=== PATIENT | male | born 1975 | race Two or more races ===

== ENCOUNTER → 2017-05-15 06:59 | Day surgery (SDC) | payer OTHER ==
[~2017-05-15 06:59] MED LIST: Acetaminophen TAB* 325 MG PO PRN; Buffered Lidocaine 0.9% SYRIN* 5 ML/SYR SYRINGE INTRADERM ONE; Buffered Lidocaine 0.9% SYRIN* 5 ML/SYR SYRINGE ONE; DiMENhydriNATE IV* 50 MG/ML VIAL IV PUSH PRN; HYDROcodone/ACETAMIN 5-325 MG* 1 TAB ONE; Lidocaine 1% MPF wEPI 200,000* 30 ML SDV ONE; Lidocaine 2% PF * 5 ML VIAL ONE; Ondansetron INJ* 2 MG/ML VIAL IV PRN; Oxymetazoline 0.05% NASAL SPR* 15 ML BTL ONE; Propofol* 10 MG/ML 20 ML BTL IV PUSH ONE; fentaNYL* 50 MCG/ML 2 ML VIAL (100 MCG VIAL) ONE
[2017-05-15] MEDS: fentaNYL* 50 MCG/ML 2 ML VIAL (100 MCG VIAL) IV PRN ×2 (08:48→08:59)
[2017-05-15 09:34] VITALS: BP 141/69
--- NOTE | 2017-05-15 12:20 | OP ---
OPERATIVE REPORT: DATE OF OPERATION: 05/15/17 DATE OF : 73 SURGEON: German Loja M.D. PRE-OP DIAGNOSIS: Deviated nasal septum, hypertrophy of inferior turbinates, and nasal dyspnea. POST-OP DIAGNOSIS: Deviated nasal septum, hypertrophy of inferior turbinates, and nasal dyspnea. OPERATIVE PROCEDURE: Septoplasty and submucosal resection of inferior turbinates. BRIEF HISTORY: This 42-year-old gentleman with longstanding history of nasal dyspnea, symptoms of chronic sinusitis, and chronic congestion, not improving with medical management including nasal steroids. DESCRIPTION OF PROCEDURE: The patient was taken to the operating room, general anesthetic given, patient intubated with LMA. Nose was decongested with Afrin placed pledgets and subsequently 2% lidocaine with epinephrine was infiltrated into the septal mucosa on both sides and the inferior turbinates on both sides. Subsequently, a left hemitransfixion incision was created, mucoperichondrial flap was elevated. Quadrangular cartilage was disarticulated along the vomer- ethmoidal complex posteriorly. Large septal spur was removed posteriorly. Quadrangular cartilage was curved on its concave surface on the right side, was scored, and subsequently replaced back in the midline along the maxillary crest. Multiple mattress sutures of chromic was utilized. The hemitransfixion was closed. Router splints were applied, which were secured with 3-0 silk. Then we turned our attention to the inferior turbinate. A small incision was made in the inferior turbinate mucosa. Submucosal elevation was carried out. Portions of submucosal bone was removed. Subsequently cauterization of submucosal tissue was carried out to enhance hemostasis. Small dressing was applied. The patient was awakened and sent to recovery room in stable condition. Instrument and sponge count correct. Blood loss minimal. [id number]/[facility] #: [id number] [facility]
== END | disposition home or self-care (01) ==
LOC: OR 06:59
PROVIDERS: ATTEND Otolaryngology
DX: J34.2 Deviated nasal septum (principal); J34.3 Hypertrophy of nasal turbinates; J45.909 Unspecified asthma, uncomplicated; E03.9 Hypothyroidism, unspecified; B19.20 Unspecified viral hepatitis C without hepatic coma
CPT/HCPCS: A9270-GY; J2001; J2704; J3010

== ENCOUNTER 2019-08-11 08:23 | Day surgery (SDC) | payer OTHER ==
--- NOTE | 2019-08-05 13:00 | HP ---
PREOPERATIVE HISTORY AND PHYSICAL: DATE OF ADMISSION/SURGERY: 08/11/19 [facility] DATE OF OFFICE VISIT/ENCOUNTER: 08/03/19 ATTENDING SURGEON: Areli Raymundo MD * (DICTATED BY TEO VILLARREAL) PROCEDURE: Right wrist carpal tunnel release, ulnar nerve decompression at the elbow. HISTORY OF PRESENT ILLNESS: This is a 44-year-old male recovering drug addict, cocaine and heroin, last use was 02/28/16, also positive for hepatitis C and HIV. He is complaining of numbness and tingling in his bilateral hands, right is worse than the left. He has had trouble for over a year on and off and symptoms has gradually gotten worse. He reports an injury to his right elbow in the past, but is not sure if this correlates with onset of symptoms. 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 He had an EMG nerve conduction study recently that showed right carpal tunnel syndrome and right cubital tunnel syndrome. He has been consented to proceed with surgical intervention at this time. PAST MEDICAL HISTORY: 1. Hypothyroidism. 2. Anxiety/depression. 3. Hepatitis C. 4. HIV. 5. Asthma. 6. Latent tuberculosis. PAST SURGICAL HISTORY: 1. Deviated septum. 2. [place] teeth extraction. CURRENT MEDICATIONS: 1. Albuterol sulfate 4 times a day as needed with nebulizer. 2. Epclusa 400-100 daily. 3. Fluticasone propionate 1 spray each nostril every morning. 4. Ketoconazole 2% apply once daily to affected areas. 5. Levothyroxine sodium 50 mcg 1 tablet daily. 6. Lorazepam 1 mg half to one tab twice a day p.r.n. anxiety. 7. Omeprazole 20 mg daily. 8. Symbicort 2 puffs twice a day. 9. Triumeq 600-500-300 mg 1 tab daily. 10. Ventolin inhaler 2 puffs q.4 hours p.r.n. 11. Viibryd 20 mg every day. 12. Wellbutrin SR 100 mg daily. ALLERGIES: SERTRALINE. FAMILY MEDICAL HISTORY: Emphysema and cardiac disease. SOCIAL HISTORY: The patient is unemployed. He is currently filing for disability. He denies tobacco use and current recreational drug use. He drinks alcohol on rare occasions. REVIEW OF SYSTEMS: Negative for general, cephalic, cardiovascular, respiratory , GI, , other musculoskeletal, integumentary, endocrine, neurologic and hematologic symptoms. Infectious Disease: Negative for history of MRSA. Positive for hepatitis C and HIV. PHYSICAL EXAMINATION GENERAL: A well-developed, well-nourished 44-year-old male, in no acute distress. VITAL SIGNS: Height 5 feet 7 inches, weight 225 pounds, pulse rate 74, blood pressure 132/76. HEENT: Normocephalic, atraumatic. Pupils are equal, round, and reactive to light and accommodation. Extraocular movements are intact. Throat is clear. NECK: Supple. No palpable lymph nodes. PULMONARY: Lungs are clear to auscultation bilaterally. No wheezes, rales, or rhonchi. CARDIOVASCULAR: Regular rate and rhythm, S1 and S2. No murmurs, rubs, or gallops. No edema. ABDOMEN: Positive bowel sounds, soft, nontender. NEUROLOGIC: Alert and oriented x3. Cranial nerves II through XII are intact. MUSCULOSKELETAL: On exam of his right upper extremity, he has first dorsal interosseous wasting on the right compared to the left. He has marked weakness with abducting his fingers on the right. Hypersensitivity of the small finger of the right hand. He has a positive Tinel sign over the ulnar nerve on the right as well as at the median nerve at the carpal tunnel. He has full elbow motion, full wrist motion. DIAGNOSTIC STUDIES: Nerve conduction/EMG shows right carpal tunnel syndrome and right cubital tunnel syndrome. PLAN: The patient is scheduled to undergo a right wrist carpal tunnel release and ulnar nerve decompression at the elbow with Dr. Raymundo on 08/11/19. He will return to the office 10 days postop for followup and suture removal. A prescription for oxycodone was e-scribed to the patient's pharmacy for postoperative pain management. TEO VILLARREAL [id number]/[facility] #: [id number] MTDVilma
[2019-08-11] MEDS ORDERED: Famotidine IV* 10 MG/ML 2 ML (20 mg) ONE (08:32)
[2019-08-11] MEDS ORDERED: ceFAZolin 2 GM PREMIX in ORs 2 GM/50 ML BAG ONE (08:38)
[2019-08-11] MEDS ORDERED: Buffered Lidocaine 1% SYRIN* 1 ML/SYRINGE INTRADERM ONE (09:13)
[2019-08-11] MEDS ORDERED: Midazolam* 1 MG/ML 5 ML VIAL (5 MG) ONE (09:29)
[2019-08-11] MEDS ORDERED: Lidocaine 1% INJ* 10 MG/ML 30 ML SDV ONE (09:53)
[2019-08-11] MEDS ORDERED: fentaNYL* 50 MCG/ML 2 ML VIAL (100 MCG VIAL) ONE ×2 (10:26→10:36)
[2019-08-11] MEDS ORDERED: Ketorolac INJ* 30 MG/ML 1 ML VIAL ONE (10:37)
[2019-08-11] MEDS ORDERED: Ondansetron INJ* 2 MG/ML VIAL ONE (10:37)
[2019-08-11] MEDS ORDERED: Propofol* 10 MG/ML 20 ML BTL ONE (10:37)
[2019-08-11] MEDS ORDERED: Lidocaine 2% PF * 5 ML VIAL ONE (10:37)
[2019-08-11 12:16] VITALS: BP 131/82
--- NOTE | 2019-08-11 22:15 | OP ---
DATE OF OPERATION: 08/11/19 - [facility] DATE OF : 73 SURGEON: Areli Raymundo MD CARDIOTHORACIC ICU RN: TEO Ann ANESTHESIA: General. PRE-OP DIAGNOSES: Carpal tunnel syndrome and cubital tunnel syndrome on the right. POST-OP DIAGNOSES: Carpal tunnel syndrome and cubital tunnel syndrome on the right. OPERATIVE PROCEDURE: Right carpal tunnel release and ulnar nerve decompression at the elbow. INDICATIONS: Zachary is a 44-year-old male who has numbness and tingling in the right hand in both median and ulnar nerve distribution. Nerve conduction study was consistent with an ulnar nerve compression of the elbow and median nerve compression at the wrist. He presents for right elbow ulnar nerve decompression , right wrist carpal tunnel release. ESTIMATED BLOOD LOSS: Zero. TOURNIQUET TIME: About 30 minutes. DESCRIPTION OF PROCEDURE: The patient was brought to the operating room, was given a general anesthetic and placed in the supine position on the operating table with the tourniquet around his right upper arm. The skin of his right upper extremity was prepped and draped in the usual sterile fashion. The hand and forearm were exsanguinated and the tourniquet elevated to 250 mmHg. A longitudinal incision was made in the palm in line with the ring finger. We dissected through the subcutaneous tissue down to the transverse carpal ligament. The ligament was divided sharply with a knife and then more proximally with the scissors. The nerve was dissected free from the surrounding tissue and there was an area of moderate compression at the midportion of the ligament. The wound was irrigated and the skin edges were reapproximated with 4-0 nylon suture. Next, a curvilinear incision was made centered between the medial epicondyle and the tip of the olecranon process. We dissected through the subcutaneous tissue down to the ulnar nerve, was carefully dissected through the cubital tunnel and completely released into the FCU fascia, both superficial and deep and up into the upper arm. The medial intermuscular septum was divided. Hemostasis was achieved with the Bovie. There was significant compression right through the bony portion of the cubital tunnel. The wound was copiously irrigated with saline. The subcutaneous tissue was closed with 3-0 Vicryl suture and the skin with 4-0 nylon suture. The wounds were dressed with Xeroform, 4x4, Webril, and an Michael wrap. The patient tolerated the procedure well and was brought to the recovery room in good condition. [id number]/[facility] #: [id number] MTDVilma
== END 2019-08-11 13:05 | disposition home or self-care (01) ==
LOC: OREAST 08:23
PROVIDERS: ATTEND Orthopaedic Surgery
DX: G56.01 Carpal tunnel syndrome, right upper limb (principal); G56.21 Lesion of ulnar nerve, right upper limb; E03.9 Hypothyroidism, unspecified; F32.9 Major depressive disorder, single episode, unspecified; F41.9 Anxiety disorder, unspecified; B18.2 Chronic viral hepatitis C; B20 Human immunodeficiency virus [HIV] disease; J45.909 Unspecified asthma, uncomplicated; Z22.7 Latent tuberculosis
CPT/HCPCS: J0690; J1885; J2250; J2405; J2704; J3010

== ENCOUNTER 2019-09-22 11:12 | Day surgery (SDC) | payer OTHER ==
--- NOTE | 2019-09-15 10:02 | HP ---
PREOPERATIVE HISTORY AND PHYSICAL: DATE OF SURGERY/ADMISSION: 09/22/19 [facility] DATE OF OFFICE VISIT/ENCOUNTER: 09/14/19 ATTENDING SURGEON: Areli Raymundo MD.* (DICTATED BY TEO VILLARREAL) PROCEDURE: Left wrist carpal tunnel release, left ring trigger finger release. HISTORY OF PRESENT ILLNESS: This is a 44-year-old male who complains of numbness and tingling in his left hand and locking and triggering of the left ring finger. He has had these symptoms present for over a year on and off, but recently both have become more persistent. He has had a cortisone injection for his trigger finger, which helped him for a short period of time, but the problem has returned. The tingling in his hand is causing him to have difficulty at work. He also gets symptoms at night that occasionally wake him. He recently underwent a right wrist carpal tunnel release and ulnar nerve decompression at the right elbow and has done quite well with that. He is now interested in pursuing surgical intervention for his left wrist carpal tunnel syndrome and his left ring trigger finger. The patient is a recovering drug addict, cocaine and heroin. Last use per his report was 02/28/16. He is also positive for hepatitis C and HIV. PAST MEDICAL HISTORY: 1. Hypothyroidism. 2. Anxiety/depression. 3. Hepatitis C. 4. HIV. 5. Asthma. 6. Latent tuberculosis. PAST SURGICAL HISTORY: 1. Right wrist carpal tunnel release. 2. Right ulnar nerve decompression at the elbow. 3. Deviated septum. 4. [place] teeth extraction. CURRENT MEDICATIONS: 1. Albuterol sulfate 1.25 mg/3 mL 4 times a day as needed with nebulizer. 2. Epclusa 400/100 mg daily. 3. Fluticasone propionate 50 mcg/act 1 spray each nostril in the morning. 4. Ketoconazole 2%, apply once daily to affected area. 5. Levothyroxine sodium 50 mcg daily. 6. Lorazepam 1 mg 1/2 to 1 tab twice a day p.r.n. anxiety. 7. Prazosin HCl 2 mg. 8. Propranolol HCl 80 mg daily. 9. Quetiapine fumarate 50 mg 1 at bedtime. 10. Ranitidine HCl 150 mg daily. 11. Symbicort 160/4.5 mcg/act 2 puffs twice a day. 12. Triumeq 600/50/300 mg 1 tab daily. 13. Ventolin HFA inhaler q.4 hours p.r.n. 14. Viibryd 20 mg daily. 15. Wellbutrin SR 100 mg daily. ALLERGIES: SERTRALINE. FAMILY MEDICAL HISTORY: Emphysema and cardiac disease. SOCIAL HISTORY: The patient is currently unemployed. He is filing for disability. He denies tobacco use and current recreational drug use. He denies current alcohol use. REVIEW OF SYSTEMS: Negative for general, cephalic, cardiovascular, respiratory , GI, , other musculoskeletal, integumentary, endocrine, neurologic, and hematologic symptoms. Infectious Disease: Positive for hepatitis C and HIV. Negative for history of MRSA. PHYSICAL EXAMINATION GENERAL: A well-developed, well-nourished, 44-year-old male in no acute distress. VITAL SIGNS: Height 5 feet 7 inches, weight 230 pounds. Pulse rate 62, blood pressure 128/80. HEENT: Normocephalic, atraumatic. Pupils are equal, round, and reactive to light and accommodation. Extraocular movements are intact. Throat is clear. NECK: Supple. No palpable lymph nodes. PULMONARY: The lungs are clear to auscultation bilaterally. No wheezes, rales , or rhonchi. CARDIOVASCULAR: Regular rate and rhythm. S1, S2. No murmurs, rubs, or gallops. No edema. ABDOMEN: Positive bowel sounds. Soft, nontender. NEUROLOGICAL: Alert and oriented x3. Cranial nerves II through XII are intact. MUSCULOSKELETAL: On exam of his left upper extremity, he has weakness with some abduction, but no visible thenar wasting. He has a positive Tinel sign over the median nerve at the carpal tunnel. He has tenderness to palpation at the A1 jn of the ring finger and he has difficulty squeezing his hand into a tight fist. Sensation is intact throughout the hand to light touch. IMPRESSION: Left wrist carpal tunnel syndrome and left ring trigger finger. PLAN: The patient is scheduled to undergo left wrist carpal tunnel release and left ring trigger finger release with Dr. Raymundo on 09/22/19. He will return to the office 10 days postop for followup and suture removal. A prescription for oxycodone was sent to the patient's pharmacy for postoperative pain management. TEO VILLARREAL [id number]/[facility] #: [id number] [facility] INSANEVil[facility]
[~2019-09-22 11:12] MED LIST changes: -Acetaminophen TAB* 325 MG PO PRN; -Buffered Lidocaine 0.9% SYRIN* 5 ML/SYR SYRINGE INTRADERM ONE; -Buffered Lidocaine 0.9% SYRIN* 5 ML/SYR SYRINGE ONE; +Buffered Lidocaine 1% SYRIN* 1 ML/SYRINGE INTRADERM ONE; -DiMENhydriNATE IV* 50 MG/ML VIAL IV PUSH PRN; +Famotidine IV* 10 MG/ML 2 ML (20 mg) IV ONE; -HYDROcodone/ACETAMIN 5-325 MG* 1 TAB ONE; +Lactated Ringers 1000 ML Bag* 1,000 ML IV SCH; -Lidocaine 1% MPF wEPI 200,000* 30 ML SDV ONE; -Lidocaine 2% PF * 5 ML VIAL ONE; -Ondansetron INJ* 2 MG/ML VIAL IV PRN; -Oxymetazoline 0.05% NASAL SPR* 15 ML BTL ONE; -Propofol* 10 MG/ML 20 ML BTL IV PUSH ONE; -fentaNYL* 50 MCG/ML 2 ML VIAL (100 MCG VIAL) ONE
[2019-09-22] MEDS ORDERED: Midazolam* 1 MG/ML 5 ML VIAL (5 MG) ONE (11:39)
[2019-09-22] MEDS ORDERED: Famotidine IV* 10 MG/ML 2 ML (20 mg) ONE (11:40)
[2019-09-22] MEDS ORDERED: Naloxone* 0.4 MG/ML 1 ML VIAL IV PRN (11:49)
[2019-09-22] MEDS ORDERED: Acetaminophen TAB* 325 MG PO PRN (11:49)
[2019-09-22] MEDS ORDERED: Lidocaine 1% INJ* 10 MG/ML 30 ML SDV ONE (11:54)
[2019-09-22] MEDS ORDERED: Propofol* 10 MG/ML 20 ML BTL ONE (12:05)
[2019-09-22] MEDS ORDERED: Lidocaine 2% PF * 5 ML VIAL ONE (12:05)
[2019-09-22] MEDS ORDERED: Ketorolac INJ* 30 MG/ML 1 ML VIAL ONE ×2 (12:05→12:15)
[2019-09-22] MEDS ORDERED: fentaNYL* 50 MCG/ML 2 ML VIAL (100 MCG VIAL) ONE (12:06)
[2019-09-22] MEDS ORDERED: Ondansetron INJ* 2 MG/ML VIAL ONE (12:15)
[2019-09-22 12:55] VITALS: BP 97/60
--- NOTE | 2019-09-22 15:38 | OP ---
DATE OF OPERATION: 09/22/19 [facility] DATE OF : 73 SURGEON: Areli Raymundo MD LOGISTICS ADMINISTRATOR: TEO Ann ANESTHESIA: Local MAC. PRE-OP DIAGNOSIS: Carpal tunnel syndrome and ring finger trigger, both on left. POST-OP DIAGNOSIS: Carpal tunnel syndrome and ring finger trigger, both on left. OPERATIVE PROCEDURE: Left ring finger trigger release and left carpal tunnel release. ESTIMATED BLOOD LOSS: Zero. TOURNIQUET TIME: About 15 minutes. INDICATIONS FOR PROCEDURE: Zachary is a 44-year-old male who has triggering and locking of his left ring finger and left carpal tunnel syndrome. He has failed to improve despite conservative treatment, presents for now left ring finger trigger release and left carpal tunnel release. DESCRIPTION OF PROCEDURE: The patient was brought to the operating room, was given a sedation anesthetic and a local infiltration total of 10 cc of 1% plain lidocaine in the palm of his left hand. The skin of his left hand and forearm was prepped and draped in the usual sterile fashion. The hand and forearm were exsanguinated and the tourniquet elevated to 250 mmHg. A transverse incision was made centered over the A1 jn of the left ring finger. We dissected bluntly through the subcutaneous tissue down to the flexor tendon sheath. The A1 jn was incised longitudinally, completely releasing the flexor tendons which were in good condition. There was no tenosynovitis. The wound was irrigated and the skin edges reapproximated with 4-0 nylon suture. Next, a longitudinal incision was made in the palm in line with ring finger. We dissected sharply through the subcutaneous tissue down to the transverse carpal ligament. The ligament was divided sharply with the knife and then more proximally with the scissors. The nerve was dissected free from the surrounding tissue and there was an area of moderate compression at the mid portion of the ligament. The wound was irrigated and the skin edges reapproximated with 4-0 nylon suture. The wound was dressed with Xeroform, 4x4 , Webril, and an Michael wrap. The patient tolerated the procedure well and was brought to the recovery room in good condition. [id number]/[facility] #: [id number] [facility]ITALVilma
== END 2019-09-22 13:14 | disposition home or self-care (01) ==
LOC: OREAST 11:12
PROVIDERS: ATTEND Orthopaedic Surgery
PROC: 01N50ZZ Release Median Nerve, Open Approach (ICD-10-PCS; principal; 2019-09-22 13:15)
PROC: 0LN80ZZ Release Left Hand Tendon, Open Approach (ICD-10-PCS; 2019-09-22 13:15)
DX: G56.02 Carpal tunnel syndrome, left upper limb (principal); M65.342 Trigger finger, left ring finger; B20 Human immunodeficiency virus [HIV] disease; B19.20 Unspecified viral hepatitis C without hepatic coma; E03.9 Hypothyroidism, unspecified; F41.8 Other specified anxiety disorders; J45.909 Unspecified asthma, uncomplicated; F14.11 Cocaine abuse, in remission; F11.11 Opioid abuse, in remission; Z79.51 Long term (current) use of inhaled steroids
CPT/HCPCS: J1885; J2250; J2405; J2704; J3010

== ENCOUNTER 2020-01-12 11:14 | Day surgery (SDC) | payer OTHER ==
--- NOTE | 2020-01-07 17:09 | HP ---
PREOPERATIVE HISTORY AND PHYSICAL: DATE OF SURGERY/ADMISSION: 01/12/20 - [facility] DATE OF OFFICE VISIT/ENCOUNTER: 01/06/20 ATTENDING SURGEON: Areli Krueger MD * (DICTATED BY TEO VILLARREAL) PROCEDURE: Trigger release, right ring finger. HISTORY OF PRESENT ILLNESS: This is a 44-year-old male who complains of triggering and locking in his right ring finger. This has been going on for a couple of months now. He recently underwent a left ring finger trigger release and has done well with that. He is now interested in pursuing a trigger release for the right ring finger. The patient is recovering drug addict, cocaine and heroin, last use per his report was in February of 2016. He is also positive for hepatitis C and HIV. PAST MEDICAL HISTORY: 1. Hypothyroidism. 2. Anxiety/depression. 3. Hepatitis C. 4. HIV. 5. Asthma. 6. Latent tuberculosis. PAST SURGICAL HISTORY: 1. Left wrist carpal tunnel release. 2. Left ring finger trigger release. 3. Right wrist carpal tunnel release. 4. Right ulnar nerve decompression at the elbow. 5. Surgery for deviated septum. 6. [place] teeth extraction. CURRENT MEDICATIONS: 1. Albuterol sulfate 1.25 mg/3 mL 4 times a day as needed with nebulizer. 2. Aripiprazole 15 mg daily. 3. Bupropion hydrochloride ER 200 mg 1 tablet in the morning and 1 tablet at noon. 4. Fluticasone propionate 50 mcg/act 1 spray each nostril in the morning. 5. Levothyroxine sodium 88 mcg daily. 6. Lisinopril 20 mg daily. 7. Lorazepam 1 mg twice a day as needed. 8. Omeprazole 20 mg 1 capsule every day. 9. Prazosin HCl 2 mg as needed. 10. Symbicort 160/4.5 mcg/act 2 puffs twice a day. 11. Triumeq 600/50/300 mg 1 tablet daily. 12. Ventolin inhaler 2 puffs q.4 hours as needed. ALLERGIES: SERTRALINE. FAMILY HISTORY: Emphysema and cardiac disease. SOCIAL HISTORY: The patient is currently unemployed. He denies tobacco use and current recreational drug use. He denies current alcohol use. REVIEW OF SYSTEMS: Negative for general, cephalic, cardiovascular, respiratory , GI, , other musculoskeletal, integumentary, endocrine, neurologic, and hematologic symptoms. Infectious Disease: Positive for hepatitis C and HIV. Negative for history of MRSA. PHYSICAL EXAMINATION GENERAL: Well-developed, well-nourished, 44-year-old male, in no acute distress. VITAL SIGNS: Height 5 feet 7 inches, weight 252 pounds. Pulse rate 74, blood pressure 124/84. HEENT: Normocephalic, atraumatic. Pupils are equal, round, and reactive to light and accommodation. Extraocular movements are intact. Throat is clear. NECK: Supple. No palpable lymph nodes. PULMONARY: Lungs are clear to auscultation bilaterally. No wheezes, rales, or rhonchi. CARDIOVASCULAR: Regular rate and rhythm, S1 and S2. No murmurs, rubs, or gallops. No edema. ABDOMEN: Positive bowel sounds, soft, nontender. MUSCULOSKELETAL: On exam of his right hand, he has tenderness to palpation at the A1 jn. When he flexes his finger, it locks in that position; passively , it can be unlocked. Neurovascular function is intact except for slight decreased sensation in the ulnar nerve distribution and weakness in the ulnar innervated muscles. NEUROLOGIC: Alert and oriented x3. Cranial nerves II through XII are intact. Sensation is intact to light touch. SKIN: Intact. IMPRESSION: Right ring finger. PLAN: The patient is scheduled to undergo a trigger release, right ring finger , with Dr. Krueger on 01/12/20. He will return to the office 10 days postop for followup and suture removal. Prescriptions for oxycodone and ibuprofen were e- scribed to the patient's pharmacy for postoperative pain management. TEO VILLARREAL [id number]/[facility] #: [id number] WALDEMAR
[~2020-01-12 11:14] MED LIST changes: -Famotidine IV* 10 MG/ML 2 ML (20 mg) IV ONE
[2020-01-12] MEDS ORDERED: fentaNYL* 50 MCG/ML 2 ML VIAL (100 MCG VIAL) ONE (12:51)
[2020-01-12] MEDS ORDERED: Midazolam* 1 MG/ML 2 ML VIAL (2 MG) ONE (12:51)
[2020-01-12] MEDS ORDERED: Propofol* 10 MG/ML 20 ML BTL ONE (12:51)
[2020-01-12] MEDS ORDERED: Lidocaine 1% INJ* 10 MG/ML 30 ML SDV ONE (13:10)
[2020-01-12 13:52] VITALS: BP 137/89
[2020-01-12] MEDS ORDERED: oxyCODONE ORAL.SOLN* 5 MG/5 ML UDC ONE (14:20)
--- NOTE | 2020-01-13 00:26 | OP ---
DATE OF OPERATION: 01/12/[address] [facility] DATE OF : 73 SURGEON: Areli Krueger MD PHYSICIAN ASSISTANT: TEO Ann ANESTHESIA: Local MAC. PRE-OP DIAGNOSIS: Right ring finger trigger finger. POST-OP DIAGNOSIS: Right ring finger trigger finger. OPERATIVE PROCEDURE: Right ring finger trigger release. ESTIMATED BLOOD LOSS: Zero. TOURNIQUET TIME: About 10 minutes. INDICATIONS FOR PROCEDURE: Zachary is a 44-year-old male who has triggering and locking of his right ring finger. He has failed conservative treatment and presents for trigger finger release. DESCRIPTION OF PROCEDURE: The patient was brought to the operating room, was given a sedation anesthetic and a local infiltration of 10 cc of 1% plain lidocaine in the palm of his right hand. The skin of his right hand and forearm was prepped and draped in the usual sterile fashion. The hand and forearm were exsanguinated and the tourniquet elevated to 250 mmHg. A transverse incision was made centered over the A1 jn of the ring finger. We dissected bluntly through the subcutaneous tissue down to the jn. The jn was incised longitudinally completely releasing flexor tendons, which were in good condition with only mild abrasion. There was no tenosynovitis. The jn was very very tight. The wound was irrigated and the skin edges reapproximated with 4-0 nylon suture. The wound was dressed with Xeroform, 4x4 , Webril, and an Michael wrap. The patient tolerated the procedure well and was brought to the recovery room in good condition. [id number]/[facility] #: [id number] MTDD
== END 2020-01-12 14:30 | disposition home or self-care (01) ==
LOC: OREAST 11:14
PROVIDERS: ATTEND Orthopaedic Surgery
DX: M65.341 Trigger finger, right ring finger (principal); E03.9 Hypothyroidism, unspecified; F41.8 Other specified anxiety disorders; J45.909 Unspecified asthma, uncomplicated; Z22.7 Latent tuberculosis; B18.2 Chronic viral hepatitis C; Z21 Asymptomatic human immunodeficiency virus [HIV] infection status; F43.10 Post-traumatic stress disorder, unspecified
CPT/HCPCS: A9270-GY; J2250; J2704; J3010